=== PATIENT | female | born 1985 | race Caucasian/White ===

== ENCOUNTER → 2016-04-07 | Outpatient (CLI) | payer BC ==
[~2016-04-07] MED LIST: LEVO100T4 PO
== END ==
LOC: HPND 08:12
PROVIDERS: ATTEND Obstetrics & Gynecology
DX: O99.281 Endocrine, nutritional and metabolic diseases complicating pregnancy, first trimester (principal); O09.291 Supervision of pregnancy with other poor reproductive or obstetric history, first trimester
CPT/HCPCS: 36416; 76813

== ENCOUNTER → 2016-05-05 | Outpatient (CLI) | payer BC | LOC: HPND 08:13 | PROVIDERS: ATTEND Obstetrics & Gynecology | DX: O99.281 Endocrine, nutritional and metabolic diseases complicating pregnancy, first trimester (principal); O03.9 Complete or unspecified spontaneous abortion without complication; O09.291 Supervision of pregnancy with other poor reproductive or obstetric history, first trimester | CPT/HCPCS: 76811 ==